=== PATIENT | male | born 1965 | race Caucasian/White ===

== ENCOUNTER 2018-08-08 22:25 | Inpatient (IN) | payer OTHER ==
[2018-08-08] MEDS: LIDOCAINE 2% (MDV) 20 ML INJ SC (23:00)
[2018-08-08] MEDS: PHENYLephrine (100 MCG/ML) 5ML SYG IV (23:00)
[2018-08-09] MEDS: HYDROmorphONE 0.5 MG/0.5 ML SYG IV (00:27)
[2018-08-09] MEDS: SOD CHLORIDE 0.9% 1,000 ML IV (00:27)
[2018-08-09 00:29] LABS: ADD MAN DIFF? NO
[2018-08-09 00:32] LABS: WHITE BLOOD COUNT 9.1 10^3/ul (4.8-10.8)
[2018-08-09 00:32] LABS: BASOPHIL # 0.1 10^3/ul (0.0-0.1); BASOPHILS % 0.8 % (0.0-2.0); EOSINOPHILS # 0.1 10^3/ul (0.0-0.5); EOSINOPHILS % 1.3 % (0.0-7.0); HEMATOCRIT 34.4 % (42.0-52.0); HEMOGLOBIN 11.6 g/dl (14.0-18.0); LYMPHOCYTES # 2.9 10^3/ul (0.8-2.9); MEAN CORPUSCULAR HEMOGLOBIN 31.1 pg (29.0-33.0); MEAN CORPUSCULAR HGB CONC 33.7 g/dl (32.0-37.0); MEAN CORPUSCULAR VOLUME 92.2 fl (82.0-101.0); MEAN PLATELET VOLUME 10.4 fl (7.4-10.4); MONOCYTE # 0.8 10^3/ul (0.3-0.9); MONOCYTES % 9.3 % (0.0-11.0); NEUTROPHIL # 5.1 10^3/ul (1.6-7.5); NEUTROPHILS % 56.2 % (39.0-77.0); PLATELET COUNT 200 10^3/UL (140-415); RED BLOOD COUNT 3.73 10^6/ul (4.70-6.10); RED CELL DISTRIBUTION WIDTH 13.8 % (11.5-14.5)
[2018-08-09 00:39] LABS: ANION GAP 11 (5-13); BLOOD UREA NITROGEN 15 mg/dl (7-20); CALCIUM 8.7 mg/dl (8.4-10.2); CARBON DIOXIDE 21 mmol/L (21-31); CHLORIDE 111 mmol/L (97-110); CREATININE 1.07 mg/dl (0.61-1.24); Estimated GFR > 60 mL/min (>60); GLUCOSE 102 mg/dl (70-220); POTASSIUM 3.9 mmol/L (3.5-5.1); SODIUM 143 mmol/L (135-144)
[2018-08-09 00:50] LABS: TROPONIN-I < 0.012 ng/ml (0.000-0.120)
[2018-08-09] MEDS ORDERED: ONDANSETRON 4 MG INJ IV (01:30)
[2018-08-09] MEDS ORDERED: DOCUSATE SODIUM 100 MG CAP PO (01:30)
[2018-08-09] MEDS ORDERED: BISACODYL (EC) 5 MG TAB PO (01:30)
[2018-08-09] MEDS ORDERED: NACL 0.9% 3 ML SYG IV (01:30)
[2018-08-09 05:03] LABS: ADD MAN DIFF? NO
[2018-08-09 05:08] LABS: BASOPHIL # 0.1 10^3/ul (0.0-0.1); BASOPHILS % 0.6 % (0.0-2.0); EOSINOPHILS # 0.1 10^3/ul (0.0-0.5); EOSINOPHILS % 0.9 % (0.0-7.0); HEMATOCRIT 33.5 % (42.0-52.0); HEMOGLOBIN 11.1 g/dl (14.0-18.0); LYMPHOCYTES # 1.9 10^3/ul (0.8-2.9); LYMPHOCYTES % 23.2 % (15.0-51.0); MEAN CORPUSCULAR HEMOGLOBIN 30.7 pg (29.0-33.0); MEAN CORPUSCULAR HGB CONC 33.1 g/dl (32.0-37.0); MEAN CORPUSCULAR VOLUME 92.5 fl (82.0-101.0); MEAN PLATELET VOLUME 9.8 fl (7.4-10.4); MONOCYTE # 0.6 10^3/ul (0.3-0.9); MONOCYTES % 7.7 % (0.0-11.0); NEUTROPHIL # 5.5 10^3/ul (1.6-7.5); NEUTROPHILS % 67.2 % (39.0-77.0); PLATELET COUNT 169 10^3/UL (140-415); RED BLOOD COUNT 3.62 10^6/ul (4.70-6.10); RED CELL DISTRIBUTION WIDTH 13.5 % (11.5-14.5)
[2018-08-09 05:08] LABS: WHITE BLOOD COUNT 8.2 10^3/ul (4.8-10.8)
[2018-08-09 05:18] LABS: HEMOGLOBIN A1C 5.1 % (0-5.9)
[2018-08-09 05:43] LABS: ALANINE AMINOTRANSFERASE 28 IU/L (13-69); ALBUMIN 3.7 g/dl (3.3-4.9); ALKALINE PHOSPHATASE 44 IU/L (42-121); ANION GAP 8 (5-13); ASPARTATE AMINO TRANSFERASE 29 IU/L (15-46); BILIRUBIN,INDIRECT 0.2 mg/dl (0-1.1); BILIRUBIN,TOTAL 0.2 mg/dl (0.2-1.3); BLOOD UREA NITROGEN 15 mg/dl (7-20); CALCIUM 8.5 mg/dl (8.4-10.2); CARBON DIOXIDE 22 mmol/L (21-31); CHLORIDE 113 mmol/L (97-110); CHOL/HDL RATIO 3.2 RATIO; CHOLESTEROL 124 mg/dl (100-200); CREATININE 1.02 mg/dl (0.61-1.24); Estimated GFR > 60 mL/min (>60); GLUCOSE 129 mg/dl (70-220); HDL CHOLESTEROL 38 mg/dl (28-71); LDL CHOLESTEROL,CALCULATED 63 mg/dl; MAGNESIUM 1.9 mg/dl (1.7-2.5); POTASSIUM 3.8 mmol/L (3.5-5.1); SODIUM 143 mmol/L (135-144); TRIGLYCERIDES 114 mg/dl (0-149)
[2018-08-09] MEDS: ACETAMINOPHEN 325 MG TAB PO (07:34)
[2018-08-09] MEDS ORDERED: TIOTROPIUM 18 MCG CAPSULE INHA DEV INH (09:00)
[2018-08-09] MEDS: LAMOTRIGINE 100 MG TAB PO ×2 (09:00→21:06)
[2018-08-09] MEDS: BENAZEPRIL 20 MG TAB PO (09:03)
[2018-08-09] MEDS: AMLODIPINE 5 MG TAB PO (09:03)
[2018-08-09] MEDS: CEFTRIAXONE 1 GM/50 ML (PMX) 50 ML IVPB (09:04)
[2018-08-09] MEDS: morphine 2 MG INJ IV ×2 (17:45→21:48)
[2018-08-09] MEDS: LORAZEPAM 1 MG TAB PO (19:41)
[2018-08-09] MEDS ORDERED: LURASIDONE HCL 10 MG XX (21:00)
[2018-08-09] MEDS: TOPIRAMATE 100 MG TAB PO (21:06)
[2018-08-09] MEDS: ATORVASTATIN 10 MG TAB PO (21:06)
[2018-08-10] MEDS: morphine 2 MG INJ IV (03:38)
[2018-08-10] MEDS: LEVOTHYROXINE 100 MCG TAB PO (06:51)
[2018-08-10] MEDS: BENAZEPRIL 20 MG TAB PO (09:00)
[2018-08-10] MEDS: TIOTROPIUM 18 MCG CAPSULE INHA DEV INH (09:00)
[2018-08-10] MEDS: AMLODIPINE 5 MG TAB PO (09:22)
[2018-08-10] MEDS: LAMOTRIGINE 100 MG TAB PO (09:22)
[2018-08-10] MEDS: CEFTRIAXONE 1 GM/50 ML (PMX) 50 ML IVPB (09:22)
== END 2018-08-10 17:02 | disposition home or self-care (01) | DRG 710 ==
LOC: E/R 22:25 → 6WM 08-09 01:19
PROC: 0V9SXZZ Drainage of Penis, External Approach (ICD-10-PCS; principal; 2018-08-09)
DX: N48.39 Other priapism (principal); I10 Essential (primary) hypertension; E78.5 Hyperlipidemia, unspecified; E03.9 Hypothyroidism, unspecified; F31.9 Bipolar disorder, unspecified; M54.5 Low back pain; M54.16 Radiculopathy, lumbar region; Z87.891 Personal history of nicotine dependence; E66.9 Obesity, unspecified; Z68.31 Body mass index [BMI] 31.0-31.9, adult
CPT/HCPCS: 36415; 71045; 80048; 80053; 80061; 83036; 83735; 84443; 84484; 85025; 90686; 93005; 96374; 99285-25